=== PATIENT | male | born 1985 | race Two or more races ===

== ENCOUNTER 2025-05-23 14:43 | Inpatient (IN) | payer OTHER ==
[~2025-05-23] VITALS: Ht 177.8 cm; Wt 74.2 kg
[2025-05-23 16:30] LABS: PLATELET COUNT (AUTO) 145 K/uL (150-450); RED BLOOD CELL COUNT(AUTO) 4.39 MIL/uL (4.50-5.90); RED CELL DISTRIBUTION WIDTH 16.3 % (11.5-14.5); WHITE BLOOD COUNT (AUTO) 6.7 K/uL (4.5-11.0)
[2025-05-23 16:39] LABS: CALCIUM, TOTAL 8.7 mg/dL (8.8-10.5); CREATININE 0.72 mg/dL (0.60-1.30); GLOMERULAR FILTR. RATE CALC > 60 mL/min (>60); GLUCOSE,RANDOM 82 mg/dL (70-110); SODIUM SERUM 135 mmol/L (136-145); UREA NITROGEN, BLOOD 29 mg/dL (7-18)
[2025-05-23 16:50] LABS: TROPONIN I-HIGH SENSITIVITY 9 ng/L (<76)
[2025-05-23] MEDS: IPRATROPIUM BROMIDE 0.5 MG/2.5 ML NEB SOLUTION NEB ONE (20:37)
[2025-05-23] MEDS: BUPRENORPHINE HCL/NALOXONE HCL 8-2 MG SUBLINGUAL TABLET SL ONE (20:37)
[2025-05-23] MEDS: ALBUTEROL SULFATE 2.5 MG/0.5 ML NEB SOLUTION NEB ONE (20:37)
[2025-05-23] MEDS ORDERED: SODIUM CHLORIDE 0.9% 100 ML ONE (20:47)
[2025-05-23] MEDS ORDERED: 0.9% SODIUM CHLORIDE 10 ML SYRINGE IVP ONE (20:47)
[2025-05-23] MEDS ORDERED: IOHEXOL 350 MG/ML 100 ML VIAL ONE (20:47)
[2025-05-23] MEDS ORDERED: ZOLPIDEM TARTRATE 5 MG TABLET PO PRN (23:15)
[2025-05-23] MEDS ORDERED: MAGNESIUM HYDROXIDE SUSPENSION 30 ML UDCUP PO PRN (23:15)
[2025-05-23] MEDS ORDERED: ONDANSETRON HCL 4 MG/2 ML VIAL IVP PRN (23:15)
[2025-05-23] MEDS ORDERED: ALBUTEROL SULFATE 2.5 MG/0.5 ML NEB SOLUTION NEB PRN (23:15)
[2025-05-23] MEDS ORDERED: HYDROCODONE/ACETAMINOPHEN 5-325 MG TABLET PO PRN (23:15)
[2025-05-23] MEDS ORDERED: MORPHINE SULFATE 4 MG/ML SYRINGE IVP PRN (23:15)
[2025-05-23] MEDS ORDERED: BISACODYL 10 MG RECTAL RECTAL SUPPOSITORY PR PRN (23:15)
[2025-05-23] MEDS ORDERED: IPRATROPIUM BROMIDE 0.5 MG/2.5 ML NEB SOLUTION NEB PRN (23:15)
[2025-05-23] MEDS ORDERED: ACETAMINOPHEN 325 MG TABLET PO PRN (23:15)
[2025-05-23] MEDS ORDERED: LOSA-381 PO (23:21)
[2025-05-23] MEDS ORDERED: AMLO-257 PO (23:21)
[2025-05-23] MEDS ORDERED: LANO113C6 TP (23:21)
[2025-05-23] MEDS ORDERED: APIX5TAB PO (23:21)
[2025-05-23] MEDS ORDERED: BUPR1TAB46 SL (23:21)
[2025-05-23] MEDS ORDERED: DOCU-385 PO (23:21)
[2025-05-23] MEDS ORDERED: DOCUSATE SODIUM 100 MG CAPSULE PO PRN (23:30)
[2025-05-24] VITALS (7 sets, daily range): BP systolic 101–139; BP diastolic 60–86; PULSE 52–56; RESP 17–18; TEMP 97.7–98.2; O2SAT 99–100
[2025-05-24 06:09] LABS: CALCIUM, TOTAL 8.8 mg/dL (8.8-10.5); CREATININE 0.78 mg/dL (0.60-1.30); GLOMERULAR FILTR. RATE CALC > 60 mL/min (>60); GLUCOSE,RANDOM 76 mg/dL (70-110); SODIUM SERUM 134 mmol/L (136-145); UREA NITROGEN, BLOOD 22 mg/dL (7-18)
[2025-05-24 06:45] LABS: RED BLOOD CELL COUNT(AUTO) 5.30 MIL/uL (4.50-5.90); RED CELL DISTRIBUTION WIDTH 16.4 % (11.5-14.5); WHITE BLOOD COUNT (AUTO) 5.1 K/uL (4.5-11.0)
[2025-05-24 09:03] LABS: PLATELET COUNT (AUTO) 141 K/uL (150-450)
[2025-05-24] MEDS: PANTOPRAZOLE SODIUM 40 MG DR TABLET PO SCH (09:17)
[2025-05-24] MEDS: BUPRENORPHINE HCL/NALOXONE HCL 8-2 MG SUBLINGUAL TABLET SL SCH (09:17)
[2025-05-24] MEDS: MINERAL OIL/PETROLATUM 120 GM CREAM TP SCH (09:18)
[2025-05-24] MEDS: LOSARTAN POTASSIUM 25 MG TABLET PO SCH (09:18)
[2025-05-24] MEDS: APIXABAN 5 MG TABLET PO SCH (09:18)
[2025-05-24] MEDS: NICOTINE POLACRILEX 2 MG LOZENGE PO PRN (19:47)
[2025-05-25 04:08] VITALS: BP 114/66; PULSE 56; RESP 18; TEMP 98.1; O2SAT 100
[2025-05-25 05:55] LABS: PLATELET COUNT (AUTO) 137 K/uL (150-450); RED BLOOD CELL COUNT(AUTO) 4.40 MIL/uL (4.50-5.90); RED CELL DISTRIBUTION WIDTH 16.2 % (11.5-14.5); WHITE BLOOD COUNT (AUTO) 4.8 K/uL (4.5-11.0)
[2025-05-25 07:23] LABS: CALCIUM, TOTAL 8.4 mg/dL (8.8-10.5); CREATININE 0.75 mg/dL (0.60-1.30); GLOMERULAR FILTR. RATE CALC > 60 mL/min (>60); GLUCOSE,RANDOM 80 mg/dL (70-110); SODIUM SERUM 137 mmol/L (136-145); UREA NITROGEN, BLOOD 24 mg/dL (7-18)
[2025-05-25 07:45] VITALS: BP 105/74; PULSE 55; RESP 18; TEMP 98.1; O2SAT 99
[2025-05-25 11:42] VITALS: BP 102/66; PULSE 50; RESP 18; TEMP 97.7; O2SAT 96
[2025-05-25] MEDS: BUPRENORPHINE HCL/NALOXONE HCL 2-0.5 MG SUBLINGUAL TABLET SL ONE (11:53)
[2025-05-25 16:03] VITALS: BP 118/60; PULSE 50; RESP 18; TEMP 97; O2SAT 98
[2025-05-25 19:43] VITALS: BP 109/79; PULSE 62; RESP 18; TEMP 97.9; O2SAT 99
[2025-05-26 00:03] VITALS: BP 121/77; PULSE 54; RESP 18; TEMP 97.9; O2SAT 100
[2025-05-26 05:00] VITALS: BP 129/80; PULSE 53; RESP 18; TEMP 98.2; O2SAT 100
[2025-05-26 08:19] VITALS: BP 141/91; PULSE 50; RESP 17; TEMP 97.5; O2SAT 98
[2025-05-26 11:43] VITALS: BP 114/73; PULSE 50; RESP 18; TEMP 97.2; O2SAT 98
[2025-05-26 15:10] VITALS: BP 100/62; PULSE 52; RESP 18; TEMP 97.8; O2SAT 98
[2025-05-26] MEDS ORDERED: ACET-2247 PO (16:18)
[2025-05-26] MEDS ORDERED: ALBU2.5V39 NEB (16:19)
[2025-05-26] MEDS ORDERED: MAGN-169 PO (16:19)
== END 2025-05-26 17:45 | DRG 313 ==
LOC: EMS 14:43 → EDBD 14:43 → EDH 20:30 → 5S 05-24 00:56
PROVIDERS: ADMIT Hospitalist; ATTEND Hospitalist
DX: R07.89 Other chest pain (principal); D69.6 Thrombocytopenia, unspecified; I10 Essential (primary) hypertension; F17.200 Nicotine dependence, unspecified, uncomplicated; Z79.01 Long term (current) use of anticoagulants; Z79.899 Other long term (current) drug therapy; Z86.718 Personal history of other venous thrombosis and embolism
CPT/HCPCS: 71045; 71275; 80048; 84484; 85025; 85379; 93005; 94640; 99285; G0378; J7050; 36415-L1; 36415-TC; J7613